=== PATIENT | female | born 1960 | race Two or more races ===

== ENCOUNTER → 2016-07-14 | Outpatient (CLI) | payer OTHER ==
--- NOTE | 2016-07-14 10:36 | RAD ---
Bilateral knees, 07/14/2016: History: Knee pain AP standing, AP recumbent, oblique and lateral views of both knees were obtained as requested. There is moderate narrowing of the medial compartment of the right knee joint with subchondral sclerosis and marginal spurring. The upper aspect of an intramedullary jackie is present in the right tibia. There is moderate degenerative change at the right patellofemoral articulation. No acute fracture or dislocation is evident. There is mild narrowing of the medial compartment of the left knee joint with marginal spurring. There are mild degenerative changes at the patellofemoral articulation. No fracture or dislocation is identified. IMPRESSION: 1. Moderate degenerative change at the right knee with dominant involvement of the medial compartment. 2. Mild degenerative change at the left knee. 3. Internal fixation device in the right tibia. Left femur, 2 views, 07/14/2016: No fracture or destructive bony lesion is seen. There is joint space narrowing with subchondral sclerosis and spurring at the left hip joint. IMPRESSION: 1. Moderate osteoarthritis at the left hip joint. 2. No acute femoral abnormality is detected.
== END | disposition home or self-care (01) ==
LOC: RAD 07:17
PROVIDERS: ATTEND Family Medicine
DX: M16.12 Unilateral primary osteoarthritis, left hip (principal); M79.652 Pain in left thigh; M25.562 Pain in left knee; M25.561 Pain in right knee
CPT/HCPCS: 73552; 73562; 73565